=== PATIENT | female | born 1975 | race Caucasian/White ===

== ENCOUNTER 2017-05-19 08:15 | Day surgery (SDC) | payer BC ==
[2017-05-19] MEDS ORDERED: PROPOFOL 20 ML ONE ×2 (08:38)
[2017-05-19 08:48] VITALS: BMI 22.8
[2017-05-19 09:32] VITALS: TEMP 97.7
[2017-05-19 11:56] VITALS: BP 101/60; PULSE 66
--- NOTE | 2017-05-20 10:58 | PATH ---
Surgical Pathology Report Patient Name: SHAHLA CABRERA [facility]. Rec. #: [id number] /Age/Gender: 1975 (Age: 42) / F Account: [id number] Location: U-ENDOSCOPY Taken: 05/19/2017 Received: 05/19/2017 Reported: 05/20/2017 Physicians: Jeremías Braxton M.D. Specimen(s) Received A: POLYP SIGMOID B: BX RIGHT COLON POLYP C: TRANSVERSE COLON POLYP D: RECTAL POLYP Clinical History Preoperative diagnosis: Polyp surveillance, family history of colon cancer Postoperative diagnosis: Polyps Final Diagnosis A. COLON, SIGMOID, BIOPSY: HYPERPLASTIC POLYP. B. COLON, RIGHT, BIOPSY: COLONIC MUCOSA WITH NO PATHOLOGIC CHANGES. NO ADENOMATOUS OR HYPERPLASTIC CHANGES IDENTIFIED. C. COLON, TRANSVERSE, POLYPECTOMY: TUBULAR ADENOMA. D. COLON, RECTUM, BIOPSY: HYPERPLASTIC POLYP. Comment: Recommend correlation with clinical findings and follow up as clinically indicated. Electronically Signed Vic Gil M.D. Gross Description A. Received in formalin, labeled "biopsy sigmoid polyp" is a wolfe, irregular portion of soft tissue measuring 0.1 cm. in greatest dimension. The specimen is submitted in toto in one cassette. B. Received in formalin, labeled "biopsy right colon polyp" are 4 wolfe, irregular portions of soft tissue ranging from 0.1-0.4 cm. in greatest dimension. The specimens are submitted in toto in one cassette. C. Received in formalin, labeled "polyp transverse colon" is a wolfe, irregular portion of soft tissue measuring 0.3 cm. in greatest dimension. The specimen is submitted in toto in one cassette. D. Received in formalin, labeled "biopsy rectal polyp" is a wolfe, irregular portion of soft tissue measuring 0.3 cm. in greatest dimension. The specimen is submitted in toto in one cassette. DL/05/19/2017 saudi05/19/2017
== END 2017-05-19 11:58 | disposition home or self-care (01) ==
LOC: JASU-ENDO 08:15
PROVIDERS: ATTEND Internal Medicine Gastroenterology
PROC: 0DBK8ZX Excision of Ascending Colon, Via Natural or Artificial Opening Endoscopic, Diagnostic (ICD-10-PCS; 2017-05-19)
PROC: 0DBN8ZX Excision of Sigmoid Colon, Via Natural or Artificial Opening Endoscopic, Diagnostic (ICD-10-PCS; 2017-05-19)
PROC: 0DBP8ZX Excision of Rectum, Via Natural or Artificial Opening Endoscopic, Diagnostic (ICD-10-PCS; 2017-05-19)
PROC: 0DBL8ZX Excision of Transverse Colon, Via Natural or Artificial Opening Endoscopic, Diagnostic (ICD-10-PCS; principal; 2017-05-19 08:45)
DX: Z86.010 Personal history of colon polyps (principal); Z80.0 Family history of malignant neoplasm of digestive organs; D12.3 Benign neoplasm of transverse colon; K63.5 Polyp of colon; K64.8 Other hemorrhoids
CPT/HCPCS: 84703; 88305-TC

== ENCOUNTER 2021-01-31 04:49 | Day surgery (SDC) | payer BC ==
[2021-01-30 13:16] VITALS: BMI 21.1
[2021-01-31 09:52] VITALS: TEMP 97.1
[2021-01-31 10:09] VITALS: BP 110/73; PULSE 55
== END 2021-01-31 10:05 | disposition home or self-care (01) ==
LOC: JASU-ENDO 04:49
PROVIDERS: ATTEND Internal Medicine Gastroenterology
PROC: 0DBP8ZX Excision of Rectum, Via Natural or Artificial Opening Endoscopic, Diagnostic (ICD-10-PCS; principal; 2021-01-31 08:05)
DX: Z12.11 Encounter for screening for malignant neoplasm of colon (principal); D12.8 Benign neoplasm of rectum; Z86.010 Personal history of colon polyps; Z83.71 Family history of colonic polyps
CPT/HCPCS: 81025

== ENCOUNTER 2021-04-25 18:07 | Emergency (ER) | payer BC ==
[2021-04-25 18:28] VITALS: BMI 21.3
[2021-04-25] MEDS ORDERED: SODIUM CHLORIDE 0.9% 500 ML INFUS.BAG IV ONE (18:31)
[2021-04-25] MEDS ORDERED: ONDANSETRON 4 MG/2 ML VIAL IVPUSH ONE (18:31)
[2021-04-25 20:05] LABS: BASO % 0.1 % (0-2.0); HEMATOCRIT 39.4 % (32.4-45.2); HEMOGLOBIN 13.4 GM/dL (10.7-15.3); LYMPH % 10.2 % (8-40); MCH 29.2 pg (25.7-33.7); MCHC 33.9 g/dl (32.0-36.0); MEAN PLT VOLUME 9.3 fl (7.5-11.1); MONO % 10.1 % (3.8-10.2); NEUT % 79.6 % (42.8-82.8); PLATELET COUNT 143 10^3/uL (134-434); RBC 4.58 M/mm3 (3.60-5.2); RDW 15.4 % (11.6-15.6); WHITE BLOOD COUNT 8.7 K/mm3 (4.0-10.0)
[2021-04-25 20:19] LABS: SODIUM 138 mmol/L (136-145)
[2021-04-25 20:21] LABS: ALBUMIN 3.9 g/dl (3.4-5.0); CALCIUM 9.2 mg/dL (8.5-10.1)
[2021-04-25 20:22] LABS: BLOOD UREA NITROGEN 4.5 mg/dL (7-18); CO2 27 mmol/L (21-32); GLUCOSE,RANDOM 122 mg/dL (74-106)
[2021-04-25 20:24] LABS: SGPT/ALT 26 U/L (13-61)
[2021-04-25 20:25] LABS: CREATININE 0.7 mg/dL (0.55-1.3); SGOT/AST 24 U/L (15-37)
[2021-04-25 20:26] LABS: TOT PROT 7.2 g/dl (6.4-8.2)
[2021-04-25 20:27] LABS: BILIRUBIN,TOTAL 0.5 mg/dL (0.2-1)
[2021-04-25 20:28] LABS: ALK PHOS 66 U/L (45-117)
[2021-04-25 21:26] LABS: ANION GAP 7 MMOL/L (8-16); CHLORIDE 104 mmol/L (98-107)
[2021-04-25 22:34] VITALS: BP 105/45; PULSE 76; TEMP 98.5
[2021-04-25 22:39] LABS: URINE APPEARANCE Error; URINE BILIRUBIN NEGATIVE (NEGATIVE); URINE COLOR YELLOW; URINE GLUCOSE (UA) NEGATIVE (NEGATIVE); URINE KETONE NEGATIVE (NEGATIVE); URINE LEUK ESTERASE NEGATIVE (NEGATIVE); URINE NITRITE NEGATIVE (NEGATIVE); URINE PROTEIN NEGATIVE (NEGATIVE); URINE UROBILINOGEN 0.2 mg/dL (0.2-1.0)
== END 2021-04-26 00:52 | disposition home or self-care (01) ==
LOC: JER 18:07
PROC: 3E033GC Introduction of Other Therapeutic Substance into Peripheral Vein, Percutaneous Approach (ICD-10-PCS; principal; 2021-04-25)
DX: R00.2 Palpitations (principal); R11.0 Nausea; J06.9 Acute upper respiratory infection, unspecified
CPT/HCPCS: 36415; 80053; 81003; 84484; 85025; 93005; 93010; 99284-25

== ENCOUNTER 2025-02-11 05:38 | Day surgery (SDC) | payer BC ==
[2025-02-03 16:10] VITALS: BMI 21.7
[2025-02-11 13:03] VITALS: TEMP 97.4
[2025-02-11 13:55] VITALS: RESP 18
[2025-02-11 14:45] VITALS: BP 115/69; PULSE 57
== END 2025-02-11 14:10 | disposition home or self-care (01) ==
LOC: JASU-ENDO 05:38
PROVIDERS: ATTEND Internal Medicine Gastroenterology
PROC: 0DB78ZX Excision of Stomach, Pylorus, Via Natural or Artificial Opening Endoscopic, Diagnostic (ICD-10-PCS; 2025-02-11)
PROC: 0DB68ZX Excision of Stomach, Via Natural or Artificial Opening Endoscopic, Diagnostic (ICD-10-PCS; 2025-02-11)
PROC: 0DB28ZX Excision of Middle Esophagus, Via Natural or Artificial Opening Endoscopic, Diagnostic (ICD-10-PCS; 2025-02-11)
PROC: 0DB38ZX Excision of Lower Esophagus, Via Natural or Artificial Opening Endoscopic, Diagnostic (ICD-10-PCS; 2025-02-11)
PROC: 0DB98ZX Excision of Duodenum, Via Natural or Artificial Opening Endoscopic, Diagnostic (ICD-10-PCS; principal; 2025-02-11 12:00)
DX: K29.50 Unspecified chronic gastritis without bleeding (principal); K44.9 Diaphragmatic hernia without obstruction or gangrene; K21.00 Gastro-esophageal reflux disease with esophagitis, without bleeding
CPT/HCPCS: 81025; 88305-TC; 88342-TC